=== PATIENT | female | born 1990 | race African-American/Black ===

== ENCOUNTER → 2017-08-22 | Outpatient (REF) | payer OTHER | LOC: M LAB REF 09:02 | PROVIDERS: ATTEND Physician Assistant | DX: J01.00 Acute maxillary sinusitis, unspecified (principal) ==

== ENCOUNTER → 2019-05-07 | Outpatient (CLI) | payer OTHER ==
[~2019-05-07] MED LIST: CLAR10CA3 PO; PROHANCE 279.3MG/ML 5ML VIAL (A9576) As Ordered ONE; [UNRECOGNIZED DRUG - CODE] XX
--- NOTE | 2019-05-08 09:05 | REP ---
MRI BRAIN WITHOUT AND WITH IV CONTRAST: Pituitary MRI. HISTORY: Hyperprolactinemia. No comparison brain imaging. TECHNIQUE: Axial, coronal, and sagittal imaging planes utilized. T1- and T2-weighted sequences include spin echo, fast spin echo, FLAIR, diffusion weighted scans, and postcontrast imaging. Thin section dynamically acquired coronal images through the sella turcica are included. Gadolinium enhancement dose is 9 mL of intravenous ProHance. MRI FINDINGS: Sagittal images at the midline demonstrate 8 mm of tonsillar ectopia consistent with Arnold Chiari type 1 malformation. There is no kinking or compression of the cervicomedullary junction. The lateral, third and fourth ventricles are normal in size and position. A small cavum septum pellucidum is seen. Macedo-white differentiation pattern is normal above below the tentorium. There is no evidence of intracranial mass lesion. No extra-axial fluid collection, restricted diffusion, infarct or bleed is seen. No bony calvarial lesion is seen. No intraorbital abnormality is noted. There is no MR evidence of significant paranasal sinus disease. Dynamically acquired post contrast images of the pituitary demonstrate enhancement and a normal appearing midline pituitary stalk. The pituitary gland is not enlarged with a maximum craniocaudal height of 5 mm. Its superior margin is concave. Suprasellar cistern is clear. The optic chiasm is unremarkable. There is no evidence of parasellar mass lesion. Dynamic postcontrast images at the posterior aspect of the anterior lobe of the pituitary demonstrate a focus of decreased enhancement, which may reflect a pituitary microadenoma. This measures 6 mm in transverse dimension x 5 mm in craniocaudal span x 2 mm anterior to posterior. No other abnormal enhancement pattern is seen. Postcontrast whole brain imaging shows no abnormal intracranial enhancement. IMPRESSION: 8 mm of tonsillar ectopia, consistent with Arnold Chiari type 1 malformation. Findings consistent with a 6 mm pituitary microadenoma at the junction of the anterior and posterior pituitary lobes. Otherwise negative. Electronically Signed by Korey Medrano MD 05/08/2019 09:31 A
== END ==
LOC: M RAD 16:06
PROVIDERS: ATTEND Nurse Practitioner Family
DX: E22.1 Hyperprolactinemia (principal); E23.7 Disorder of pituitary gland, unspecified
CPT/HCPCS: 70553; A9576

== ENCOUNTER 2020-07-05 19:33 | Outpatient (CLI) | payer OTHER ==
[~2020-07-05] VITALS: Ht 165.1 cm; Wt 104.8 kg
[~2020-07-05 19:33] MED LIST changes: -PROHANCE 279.3MG/ML 5ML VIAL (A9576) As Ordered ONE
[2020-07-05] MEDS ORDERED: PRENTAB9 PO (20:10)
[2020-07-05] MEDS ORDERED: ACET325C5 PO (20:10)
[2020-07-05] MEDS ORDERED: TUMS500C PO (20:10)
== END 2020-07-05 21:50 | disposition home or self-care (01) ==
LOC: M LDO 19:33
DX: O99.89 Other specified diseases and conditions complicating pregnancy, childbirth and the puerperium (principal); O99.353 Diseases of the nervous system complicating pregnancy, third trimester; G43.909 Migraine, unspecified, not intractable, without status migrainosus; Z3A.40 40 weeks gestation of pregnancy
CPT/HCPCS: 59025; G0378; G0463

== ENCOUNTER 2020-07-08 23:49 | Inpatient (IN) | payer OTHER ==
[~2020-07-08] VITALS: Ht 165.1 cm; Wt 104.5 kg
[~2020-07-08 23:49] MED LIST changes: +ACET325C5 PO; +PRENTAB9 PO; +TUMS500C PO
[2020-07-09] VITALS (11 sets, daily range): BP systolic 112–143; BP diastolic 58–85
[2020-07-09 00:53] LABS: HEMATOCRIT 38.6 % (36.0-47.0); HEMOGLOBIN 13.2 g/dl (12.0-15.5); MEAN CORPUSCULAR HEMOGLOBIN 31.7 pg (27.0-33.0); MEAN CORPUSCULAR HGB CONC 34.2 g/dl (32.0-36.5); MEAN CORPUSCULAR VOLUME 92.8 fl (80.0-96.0); PLATELET COUNT, AUTOMATED 268 10^3/uL (150-450); RED BLOOD COUNT 4.16 10^6/uL (4.00-5.40); WHITE BLOOD COUNT 12.3 10^3/uL (4.0-10.0)
[2020-07-09] MEDS ORDERED: FENTANYL 2MCG/ML ROPIVACAINE 0.2% IN 0.9% NACL 100ML IVBAG As Ordered ONE (01:55)
[2020-07-09] MEDS ORDERED: LR 1,000 ML IV SCH (01:56)
--- NOTE | 2020-07-09 02:08 | HPEPDOC ---
Obstetrical History & Physical General Date of Admission Jul 09, 2020 at 00:30 History of Present Illness Chief Complaint: Contractions, term Information Provided By: Patient Age: 29 : 1 Care Care: Good Care Dating Final EDC: Jul 01, 2020 Final EDC by: 1st trimester (US) EGA at Admission: 41 Past Medical History Past Obstetrical History : Past Obstetrical History: Primgravida CAGE TENDER History: No pertinent history Past Medical History Medical History pituitary tumor Surgical History: Denies/None Family History Significant Family History: No pertinent family hx Social History Marital Status: Family situation: Spouse/partner home Psychosocial History: No pertinent psych hx * Smoker: non-smoker Alcohol: Denies Drugs: denies Allergies Coded Allergies: shellfish derived (Verified Allergy, Intermediate, HIVES, 07/09/20) Dust (Verified Allergy, Unknown, 07/09/20) POLLEN (Verified Allergy, Unknown, 07/09/20) Medications Scheduled Calcium Carbonate (Tums) 200 Mg Tab.chew, 2 TAB PO QID for cough and congestion Loratadine (Claritin) 10 Mg Cap, 10 MG PO DAILY Taya (Taya Root) 1 Pow Pow, 1 POW XX DAILY No.137/Iron/Folic Acd ( Vitamin Tablet) 1 Each Tablet, 1 TAB PO DAILY Miscellaneous Medications Acetaminophen (Tylenol) 325 Mg Capsule, 325 MG PO Physical Examination Physical Examination GENERAL: Alert and oriented times three. BREAST: . ABDOMEN: Gravid and non-tender to touch. FETUS: Is vertex (VTX) by sterile vaginal examination (SVE), fetus is vertex (VTX) by Steven. HEART RATE: Regular rate and rhythm. LUNGS: Clear to auscultation (CTA). Vital Signs/I&O Vital Signs Date Time Temp Pulse Resp B/P (MAP) Pulse Ox O2 Delivery O2 Flow Rate FiO2 07/09/20 01:27 83 18 143/76 (98) 07/09/20 00:18 97.8 Laboratory Data 24H LABS Laboratory Tests 2 07/09/20 00:34: Serology Scanned Report Hepatitis B Testing 07/09/20 00:45: Nucleated Red Blood Cells % (auto) 0.0 CBC/BMP Laboratory Tests 07/09/20 00:45 Pertinent Laboratoy Data Blood Type: A- HIV: Negative Hepatitis B: Negative Rapid Plasma Reagin: Nonreactive Rubella: Immune Varicella: Immune Chlamydia/Gonorrhea: Negative Group B Streptococcus: Negative Glucose Tolerance Test: 155 Anatomy Ultrasound Placenta Location: Anterior Placenta Previa: No Vaginal Examination Dilation: 3 cm Effacement: 70% Station: -2 Cervical Consistency: Medium Cervical Position: Middle Presentation: Cephalic presentation Assessment Variability: Moderate Accelerations: Positive Tocometer Contractions: Yes Frequency: every 2-5 min. Assessment/Plan Assessment 29yo G1 at 41w1d in active labor Reassuring status Plan Admit and orient. [employer] and consent. Group B Streptococcus (GBS) negative. Labs and intravenous (IV) per unit protocol. Counseled on Pitocin and induction of labor (IOL). Anticipate normal spontaneous delivery (). C-S as appropriate. LADI CASTRO MD. Jul 09, 2020 02:08
[2020-07-09] MEDS ORDERED: EPIDURAL/PCA KEYS XX PRN (02:45)
[2020-07-09] MEDS ORDERED: ONDANSETRON 4MG/2ML VIAL IV PRN (02:45)
[2020-07-09] MEDS ORDERED: FENTANYL/ROPIVACAINE/NACL BAG 100 ML EPIDURAL SCH (02:45)
[2020-07-09] MEDS ORDERED: NALOXONE INJ 0.4MG/1ML VIAL (J2310 PER 1MG) IV PRN (02:45)
[2020-07-09] MEDS ORDERED: diphenhydrAMINE 50MG/ML VIAL (J1200) IV PRN (02:45)
[2020-07-09] MEDS ORDERED: LACTATED RINGER'S 1000 ML IV PRN (02:45)
[2020-07-09] MEDS ORDERED: EPIDURAL COMMENT XX SCH (02:45)
[2020-07-09] MEDS ORDERED: ePHEDrine SULFATE 25 MG/5 ML(5MG/ML) SYRINGE IV PRN (02:45)
[2020-07-09] MEDS ORDERED: REFRIGERATOR IV KEYS XX PRN (02:45)
[2020-07-09] MEDS ORDERED: OXYTOCIN 30 UNITS IN 0.9% NaCl 500ML IV BAG (J2590) As Ordered ONE (06:04)
[2020-07-09] MEDS ORDERED: METHYLERGONOVINE MALEATE 0.2 MG/ML VIAL (J2210) As Ordered ONE (06:09)
[2020-07-09 06:17] LABS: CORD GAS ABE A -1.9; CORD GAS ABE V -2.2; CORD GAS HCO3 V 22.8 MEQ/L; CORD GAS O2 SAT A 72.1 %; CORD GAS PCO2 A 44.9 mmHg; CORD GAS PCO2 V 39.9 mmHg; CORD GAS PH A 7.346 UNITS; CORD GAS PH V 7.374 UNITS; CORD GAS PO2 A 31.8 mmHg; CORD GAS PO2 V 33.8 mmHg; CORD GAS SBC A 22.2 MEQ/L; CORD GAS TCO2 A 25.4 MEQ/L
[2020-07-09] MEDS ORDERED: ANUSOL HC CREAM 30GM TOP PRN (07:00)
[2020-07-09] MEDS ORDERED: MOM 30ML SUSPENSION UDC PO PRN (07:00)
[2020-07-09] MEDS ORDERED: OXYTOCIN DRIP 30 UNITS in IV 1 EA IV SCH (07:00)
[2020-07-09] MEDS ORDERED: METHYLERGONOVINE MALEATE 0.2 MG TAB PO PRN (07:00)
[2020-07-09] MEDS ORDERED: DIBUCAINE 1% OINTMENT 30GM TOP PRN (07:00)
[2020-07-09] MEDS ORDERED: IBUPROFEN 600MG TAB PO PRN (07:00)
[2020-07-09] MEDS ORDERED: MEASLES,MUMPS,RUBELLA VACCINE INJ (MMR-II) (90707) SC SCH (07:00)
[2020-07-09] MEDS ORDERED: RHOGAM 300 MCG (1500 IU) INJ (J2790) IM SCH (07:00)
[2020-07-09] MEDS ORDERED: ACETAMINOPHEN TAB 650MG DOSE (2X325MG) PO PRN (07:00)
[2020-07-09] MEDS ORDERED: DOCUSATE SODIUM 100 MG CAP PO PRN (07:00)
[2020-07-09] MEDS ORDERED: METHYLERGONOVINE MALEATE 0.2 MG/ML VIAL (J2210) IM ONE (07:00)
--- NOTE | 2020-07-09 07:07 | DNPDOC ---
[facility] Delivery Note Delivery Note DATE OF DELIVERY: 07/09/2020 TIME OF : 0601 GENDER: Female. APGARS: 8 and 9. WEIGHT:, 3320 grams or 7 pounds 5 ounces. LACERATIONS: Second midline laceration ANESTHESIA: Epidural. ESTIMATED BLOOD LOSS: 400 mL COUNTS: 5 laparotomy sponges accounted for prior to after delivery. 3 sharps removed delivery field. DELIVERY NOTE: 07/09/2020 at 0601, Mrs. Curran 29-year-old 1, now para 1, had a spontaneous vaginal delivery of viable female , Apgars 8 and 9. Weight was 3320 g, 7 lbs. 5 oz. Head was delivered occiput anterior (OA), followed by delivery of the shoulders and corpus. Cord was clamped times two and was cut by the father of baby under my direction. The was taken over to the warmer secondary to meconium-stained amniotic fluid. Placenta was then drained and delivered grossly intact. A premixed bag of 500 mL of normal saline with 30 units of Pitocin was then bolused along with uterine massage until the uterus was firm. On inspection,. There was a second-degree midline laceration which was repaired with 3-0 Vicryl. On reinspection, cervix, vagina, perineum was grossly intact and hemostatic. Mom and baby in recovery on stable condition. The couples decided to remain in daughter LADI Mejia MD. Jul 09, 2020 07:07
[2020-07-09] MEDS: IBUPROFEN 800 MG TAB PO PRN ×2 (08:34→18:11)
[2020-07-09] MEDS: PRENATAL VITAMINS CHEWABLE TABLET PO SCH (08:34)
[2020-07-09] MEDS ORDERED: SLF 3 ML SYR IV PRN (08:45)
[2020-07-09] MEDS: ACETAMINOPHEN 500 MG TAB PO PRN (13:16)
[2020-07-09] MEDS: SLF 3 ML SYR IV SCH ×2 (14:34→22:00)
[2020-07-10] MEDS: ACETAMINOPHEN 500 MG TAB PO PRN (02:49)
[2020-07-10 05:22] VITALS: BP 118/77
[2020-07-10] MEDS: SLF 3 ML SYR IV SCH (06:00)
[2020-07-10] MEDS ORDERED: DIBU10OI TOP (06:52)
[2020-07-10] MEDS ORDERED: IBUP80TA PO (06:52)
[2020-07-10] MEDS ORDERED: DOCU100C16 PO (06:52)
[2020-07-10] MEDS: IBUPROFEN 800 MG TAB PO PRN ×2 (09:25→18:27)
[2020-07-10] MEDS: PRENATAL VITAMINS CHEWABLE TABLET PO SCH (09:25)
--- NOTE | 2020-07-28 11:40 | DSES ---
DATE OF ADMISSION: 07/09/2020 DATE OF DISCHARGE: 07/10/2020 This is a 29-year-old, 1, now para 1, admitted in active labor, had a spontaneous vaginal delivery of a female infant, weighing 7 pounds, 5 ounces (3320 grams) with Apgars of 8 and 9 at 1 and 5 minutes respectively. On discharge, we discussed phlebitis, cystitis, mastitis, metritis, and cellulitis, diet, exercise, pain management, and perineal, breast, and wound care. Her discharge blood pressure 118/77, respirations 20, pulse 60, temperature 97.9. Her admitting hemoglobin was 13.2, hematocrit 38.6 and platelets were 268,000. The babys arterial blood gas was 7.34, base excess -1.9, venous pH 7.37, basic excess -2.2. The rest of the examination unremarkable. Normocephalic, atraumatic. Neck has full range of motion. Pupils equal and reactive to light. Distal pulses are symmetric. No evidence of DVT, PE or superficial phlebitis. Chest is clear bilaterally to bases. No wheezes or rhonchi. No CVA tenderness. Abdomen is soft. Four-quadrant bowel sounds are noted. Perineum is intact and healing as the patient had a small midline episiotomy. She is not complaining of any incontinence, urgency or frequency. No nausea, vomiting, diarrhea or constipation. IN SUMMARY: A term gestation, delivered a live female , plans are for discharge today. Medications were dispensed at [place]. Baby will be taken to [facility]. She will have a six week checkup at [facility]. All questions were answered; 20 minute discussion. KAILYN
== END 2020-07-10 19:27 | disposition home or self-care (01) | DRG 807 ==
LOC: M LDO 23:49 → M LDI 07-09 00:30 → M OBS 07-09 08:10
PROVIDERS: ADMIT Obstetrics & Gynecology; ATTEND Obstetrics & Gynecology
PROC: 10E0XZZ Delivery of Products of Conception, External Approach (ICD-10-PCS; principal; 2020-07-09)
PROC: 0KQM0ZZ Repair Perineum Muscle, Open Approach (ICD-10-PCS; 2020-07-09)
DX: O77.0 Labor and delivery complicated by meconium in amniotic fluid (principal); Z37.0 Single live birth; Z3A.38 38 weeks gestation of pregnancy; O70.1 Second degree perineal laceration during delivery